=== PATIENT | female | born 1945 | race Caucasian/White ===

== ENCOUNTER 2019-06-06 11:53 | Outpatient (CLI) | payer MEDICARE, OTHER ==
[~2019-06-06 11:53] MED LIST: 0.9 % SODIUM CHLORIDE PF 10 ML VIAL IJ ONE; BUPIVACAINE HCL 0.25% (2.5MG/ML) PF 10ML VIAL IV ONE; IOHEXOL 240 MG/ML BOTTLE 50 ML ONE; methylPREDNISolone ACETATE 80 MG/ML VIAL IM ONE
== END 2019-06-06 12:55 | disposition home or self-care (01) ==
LOC: OUT 11:53
DX: M51.26 Other intervertebral disc displacement, lumbar region (principal); M51.36 Other intervertebral disc degeneration, lumbar region
CPT/HCPCS: 64483; J1040; J3490

== ENCOUNTER 2019-06-20 13:16 | Outpatient (CLI) | payer MEDICARE, OTHER ==
[~2019-06-20 13:16] MED LIST changes: +Lidocaine 1% 5ml 10 MG/ML VIAL ONE
== END 2019-06-20 14:50 ==
LOC: OUT 13:16
DX: M51.16 Intervertebral disc disorders with radiculopathy, lumbar region (principal); M54.5 Low back pain
CPT/HCPCS: 64483; J1040; J3490

== ENCOUNTER 2019-08-22 13:17 | Outpatient (CLI) | payer MEDICARE, OTHER ==
[~2019-08-22 13:17] MED LIST changes: -0.9 % SODIUM CHLORIDE PF 10 ML VIAL IJ ONE; -BUPIVACAINE HCL 0.25% (2.5MG/ML) PF 10ML VIAL IV ONE; +BUPIVACAINE HCL 0.5% (5MG/ML) PF 10ML VIAL IV ONE; -IOHEXOL 240 MG/ML BOTTLE 50 ML ONE; +IOHEXOL 300 MG/ML BOTTLE 50 ML ONE
== END 2019-08-22 14:55 ==
LOC: OUT 13:17
DX: M47.816 Spondylosis without myelopathy or radiculopathy, lumbar region (principal); M54.5 Low back pain
CPT/HCPCS: 64493; 64494; 64495; J1040; J3490